=== PATIENT | male | born 1995 | race Two or more races ===

== ENCOUNTER 2021-12-25 15:00 | Outpatient (CLI) | payer OTHER | END 2021-12-25 15:13 | disposition home or self-care (01) | LOC: RAD 15:00 | PROVIDERS: ATTEND Specialist | DX: M25.59 Pain in other specified joint (principal) ==

== ENCOUNTER → 2022-01-13 | Outpatient (CLI) | payer OTHER | END | disposition home or self-care (01) | LOC: SONOGRAMA 10:06 | PROVIDERS: ATTEND Specialist | DX: M25.59 Pain in other specified joint (principal) ==